=== PATIENT | male | born 1970 | race Caucasian/White ===

== ENCOUNTER 2019-01-09 23:23 | Inpatient (IN) | payer SELFPAY ==
[2019-01-10 00:18] VITALS: BMI 26.9
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
[2019-01-10] MEDS ORDERED: ACETAMINOPHEN 325 MG TABLET (FP) PO PRN ×2 (01:16)
[2019-01-10] MEDS ORDERED: P-EPHED 60MG/TRIPROLIDI 2.5MG TABLET PO PRN (01:16)
[2019-01-10] MEDS ORDERED: MELATONIN 5 MG TABLETS PO PRN (01:16)
[2019-01-10] MEDS ORDERED: DICYCLOMINE HCL 10 MG CAPSULE PO PRN (01:16)
[2019-01-10] MEDS ORDERED: IBUPROFEN 400 MG TABLET (FP) PO PRN ×2 (01:16)
[2019-01-10] MEDS ORDERED: MAGNESIUM CITRATE 300 ML BOTTLE PO PRN (01:16)
[2019-01-10] MEDS ORDERED: MENTHOL/PHENOL 1 EACH UD MM PRN (01:16)
[2019-01-10] MEDS ORDERED: ONDANSETRON *ODT* 4 MG TABLET SL PRN (01:16)
[2019-01-10] MEDS ORDERED: hydrOXYzine PAMOATE 25 MG CAPSULE (FP) PO PRN (01:16)
[2019-01-10] MEDS ORDERED: METHOCARBAMOL 500 MG TABLET PO PRN (01:16)
[2019-01-10] MEDS ORDERED: chlordiazePOXIDE HCL 25 MG CAPSULE PO ONE (01:16)
[2019-01-10] MEDS ORDERED: MAGNESIUM HYDROX 2400MG/30ML ORAL SUSPENSION 30 ML CUP PO PRN (01:16)
[2019-01-10] MEDS ORDERED: MAG HYDROX/AL HYDROX/SIMETH 30 ML UNIT-DOSE CUP PO PRN (01:16)
[2019-01-10] MEDS ORDERED: BACLOFEN 10 MG TABLET (FP) PO PRN (01:16)
[2019-01-10] MEDS ORDERED: guaiFENesin 200 MG/10 ML 10 ML UNIT-DOSE CUPS PO PRN (01:16)
[2019-01-10] MEDS ORDERED: chlordiazePOXIDE HCL 25 MG CAPSULE PO PRN (01:16)
[2019-01-10] MEDS ORDERED: NICOTINE POLACRILEX 4 MG GUM BUC PRN (01:16)
[2019-01-10] MEDS ORDERED: BISMUTH SUBSALICYLATE 524 MG/30 ML UD PO PRN (01:16)
[2019-01-10] MEDS ORDERED: cloNIDine HCL 0.1 MG TABLET PO PRN (01:19)
[2019-01-10] MEDS ORDERED: chlordiazePOXIDE HCL 25 MG CAPSULE PO SCH (05:00)
[2019-01-10] MEDS ORDERED: ALBUTEROL SO4 8 GM HFA INHALER IH PRN (07:22)
[2019-01-10 09:22] VITALS: BP 151/104; PULSE 95; TEMP 97.9
[2019-01-10] MEDS ORDERED: PRENATAL VITAMINS W/ FOLIC ACID TABLET (FP) PO SCH (10:00)
[2019-01-10] MEDS ORDERED: NICOTINE 21 MG/24 HOURS TOPICAL PATCH TD SCH (10:00)
[2019-01-10 10:56] LABS: ALBUMIN 3.3 g/dl (3.4-5.0); BILIRUBIN,TOTAL 0.4 mg/dL (0.2-1); CALCIUM 8.7 mg/dL (8.5-10.1); CREATININE 0.8 mg/dL (0.55-1.3); POTASSIUM 3.3 mmol/L (3.5-5.1); TOT PROT 6.2 g/dl (6.4-8.2)
[2019-01-10 11:18] LABS: HEMATOCRIT 41.9 % (35.4-49); HEMOGLOBIN 14.4 GM/dL (11.7-16.9); MCH 33.8 pg (25.7-33.7); MCHC 34.4 g/dl (32.0-35.9); MEAN CELL VOLUME 98.1 fl (80-96); MEAN PLT VOLUME 7.9 fl (7.5-11.1); PLATELET COUNT 134 K/MM3 (134-434); RBC 4.27 M/mm3 (4.00-5.60); RDW 13.1 % (11.9-15.9); WHITE BLOOD COUNT 4.4 K/mm3 (4.0-10.0)
--- NOTE | 2019-01-10 18:07 | DS ---
[facility] Detox Discharge Summary Admission Date: 01/10/19 Discharge Date: 01/10/19 - History Present History: Alcohol Dependence Additional Comments: PATIENT REPORTS URGENT PERSONAL ISSUE THAT HE MUST ATTEND TO TO IMMEDIATELY AND THAT HE DOES NOT WISH TO REMAIN TO COMPLETE DETOX REGIMEN. RISKS OF LEAVING DETOX UNIT AGAINST MEDICAL ADVICE AND PRIOR TO COMPLETION OF DETOX REGIMEN EXPLAINED TO PATIENT. PATIENT ADVISED TO GO IMMEDIATELY TO NEAREST ER SHOULD ANY INTOLERABLE WITHDRAWAL / DETOX SYMPTOMS DEVELOP AT ANY TIME. PATIENT VERBALIZED UNDERSTANDING OF ALL INFORMATION / RECOMMENDATIONS PRESENTED TO HIM PRIOR TO DEPARTURE FROM DETOX UNIT. Pertinent Past History: HTN, Asthma, Depression. - Physical Exam Results Vital Signs: Vital Signs Temperature 97.9 F 01/10/19 09:21 Pulse Rate 95 H 01/10/19 09:21 Respiratory Rate 16 01/10/19 09:21 Blood Pressure 151/104 H 01/10/19 09:21 O2 Sat by Pulse Oximetry (%) Pertinent Admission Physical Exam Findings: WITHDRAWAL SYMPTOMS. Laboratory Tests 01/10/19 01/10/19 01/10/19 07:40 07:40 07:40 WBC 4.4 RBC 4.27 Hgb 14.4 Hct 41.9 MCV 98.1 H MCH 33.8 H MCHC 34.4 RDW 13.1 Plt Count 134 MPV 7.9 Sodium 137 Potassium 3.3 L Chloride 101 Carbon Dioxide 30 Anion Gap 7 L BUN 9.0 Creatinine 0.8 Est GFR (CKD-EPI)AfAm 124.16 Est GFR (CKD-EPI)NonAf 107.13 Random Glucose 97 Calcium 8.7 Total Bilirubin 0.4 AST 109 H ALT 148 H Alkaline Phosphatase 76 Total Protein 6.2 L Albumin 3.3 L RPR Titer Nonreactive LABS NOTED. - Medication Discharge Medications: Ambulatory Orders NK [No Known Home Medication] 01/10/19 - Diagnosis (1) Alcohol dependence with withdrawal, uncomplicated Status: Acute (2) At risk for dehydration due to poor fluid intake Status: Acute (3) Depressed affect Status: Acute (4) Skin turgor poor Status: Acute (5) Substance induced mood disorder Status: Acute (6) Asthma Status: Chronic Qualifiers: Asthma severity: mild Asthma persistence: intermittent Asthma complication type: uncomplicated Qualified Code(s): J45.20 - Mild intermittent asthma, uncomplicated (7) HTN (hypertension) Status: Chronic Qualifiers: Hypertension type: essential hypertension Qualified Code(s): I10 - Essential (primary) hypertension - AMA Did Patient Leave Against Medical Advice: Yes
[2019-01-10] MEDS ORDERED: THIAMINE HCL 100 MG TABLET (FP) PO SCH (22:00)
[2019-01-11] MEDS ORDERED: chlordiazePOXIDE HCL 25 MG CAPSULE PO SCH (05:00)
[2019-01-11] MEDS ORDERED: FLU VACCINE QUAD 60 MCG/0.5 ML (MDV 19-20) IM ONE (12:00)
[2019-01-11] MEDS ORDERED: PNEUMOC 13-VAL CONJ-DIP CRM/PF 0.5 ML DISP.SYRIN IM ONE (12:00)
[2019-01-12] MEDS ORDERED: chlordiazePOXIDE HCL 10 MG CAPSULE PO PRN
[2019-01-12] MEDS ORDERED: chlordiazePOXIDE HCL 10 MG CAPSULE PO SCH (05:00)
[2019-01-13] MEDS ORDERED: chlordiazePOXIDE HCL 10 MG CAPSULE PO SCH (05:00)
[2019-01-14] MEDS ORDERED: chlordiazePOXIDE HCL 10 MG CAPSULE PO ONE (05:00)
== END 2019-01-10 10:27 | disposition left against medical advice (07) | DRG 770 ==
LOC: YASAS 23:23 → Y6N 01-10 01:17
PROVIDERS: ADMIT Allergy & Immunology; ATTEND Allergy & Immunology
PROC: HZ2ZZZZ Detoxification Services for Substance Abuse Treatment (ICD-10-PCS; principal; 2019-01-10)
DX: F10.230 Alcohol dependence with withdrawal, uncomplicated (principal); F14.10 Cocaine abuse, uncomplicated; F19.24 Other psychoactive substance dependence with psychoactive substance-induced mood disorder; F32.9 Major depressive disorder, single episode, unspecified; I10 Essential (primary) hypertension; J45.20 Mild intermittent asthma, uncomplicated; R23.8 Other skin changes; R45.89 Other symptoms and signs involving emotional state; Z91.89 Other specified personal risk factors, not elsewhere classified
CPT/HCPCS: 36415; 80053; 85027; 86593; J0735

== ENCOUNTER 2019-01-25 23:48 | Inpatient (IN) | payer SELFPAY ==
[2019-01-26 00:16] VITALS: BMI 26.9
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
[2019-01-26] MEDS ORDERED: MAGNESIUM CITRATE 300 ML BOTTLE PO PRN (00:55)
[2019-01-26] MEDS ORDERED: ACETAMINOPHEN 325 MG TABLET (FP) PO PRN ×2 (00:55)
[2019-01-26] MEDS ORDERED: diazePAM 5 MG TABLET PO ONE (00:55)
[2019-01-26] MEDS ORDERED: NICOTINE POLACRILEX 4 MG GUM BUC PRN (00:55)
[2019-01-26] MEDS ORDERED: MELATONIN 5 MG TABLETS PO PRN (00:55)
[2019-01-26] MEDS ORDERED: MENTHOL/PHENOL 1 EACH UD MM PRN (00:55)
[2019-01-26] MEDS ORDERED: BISMUTH SUBSALICYLATE 524 MG/30 ML UD PO PRN (00:55)
[2019-01-26] MEDS ORDERED: MAG HYDROX/AL HYDROX/SIMETH 30 ML UNIT-DOSE CUP PO PRN (00:55)
[2019-01-26] MEDS ORDERED: IBUPROFEN 400 MG TABLET (FP) PO PRN (00:55)
[2019-01-26] MEDS ORDERED: MAGNESIUM HYDROX 2400MG/30ML ORAL SUSPENSION 30 ML CUP PO PRN (00:55)
[2019-01-26] MEDS: ALBUTEROL SO4 2.5/IPRATROPIUM 0.5 INH SOL 3 ML VIAL.NEB. NEB SCH ×6 (01:57→20:19)
[2019-01-26] MEDS: hydrOXYzine PAMOATE 25 MG CAPSULE (FP) PO PRN (02:19)
[2019-01-26] MEDS: METHOCARBAMOL 500 MG TABLET PO PRN (02:19)
[2019-01-26] MEDS: diazePAM 5 MG TABLET PO SCH ×3 (05:58→22:20)
[2019-01-26] MEDS: diazePAM 5 MG TABLET PO PRN ×2 (09:43→17:11)
[2019-01-26] MEDS: PRENATAL VITAMINS W/ FOLIC ACID TABLET (FP) PO SCH (09:43)
[2019-01-26] MEDS: NICOTINE 21 MG/24 HOURS TOPICAL PATCH TD SCH (09:43)
--- NOTE | 2019-01-26 12:45 | PN ---
S CIWA - CIWA Score Nausea/Vomitin Muscle Tremors: 2 Anxiety: 3 Agitation: 3 Paroxysmal Sweats: 1-Minimal Palms Moist Orientation: 0-Oriented Tacttile Disturbances: 1-Very Mild Itch/Numbness Auditory Disturbances: 0-None Visual Disturbances: 0-None Headache: 1-Very Mild CIWA-Ar Total Score: 13 BHS Progress Note (SOAP) Subjective: alert,irritable,anxious,interrupted sleep,tremor Objective: 01/26/19 12:43 Vital Signs Temperature 98.0 F 01/26/19 11:37 Pulse Rate 102 H 01/26/19 11:37 Respiratory Rate 20 01/26/19 11:37 Blood Pressure 186/95 H 01/26/19 11:37 O2 Sat by Pulse Oximetry (%) Assessment: 01/26/19 12:44 withdrawal symptom Plan: continue detox valium regimen
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
[2019-01-26] MEDS: ALBUTEROL SO4 8 GM HFA INHALER IH PRN (20:19)
[2019-01-26] MEDS: THIAMINE HCL 100 MG TABLET (FP) PO SCH (22:20)
[2019-01-26] MEDS: SUVOREXANT 10 MG TABLET PO PRN (22:21)
[2019-01-27] MEDS: diazePAM 5 MG TABLET PO SCH ×2 (05:57→17:29)
[2019-01-27] MEDS: hydrOXYzine PAMOATE 25 MG CAPSULE (FP) PO PRN ×2 (08:24→17:30)
[2019-01-27] MEDS: diazePAM 5 MG TABLET PO PRN ×3 (08:24→18:15)
[2019-01-27] MEDS: PRENATAL VITAMINS W/ FOLIC ACID TABLET (FP) PO SCH (10:08)
[2019-01-27] MEDS: NICOTINE 21 MG/24 HOURS TOPICAL PATCH TD SCH (10:09)
--- NOTE | 2019-01-27 10:37 | PN ---
S CIWA - CIWA Score Nausea/Vomitin-Mild Nausea/No Vomiting Muscle Tremors: 1-None Visible, but Simpson Anxiety: 2 Agitation: 2 Paroxysmal Sweats: No Perspiration Orientation: 0-Oriented Tacttile Disturbances: 1-Very Mild Itch/Numbness Auditory Disturbances: 0-None Visual Disturbances: 0-None Headache: 1-Very Mild CIWA-Ar Total Score: 8 BHS Progress Note (SOAP) Subjective: alert,irritable,anxious,interrupted sleep Objective: 01/27/19 10:36 Vital Signs Temperature 97.9 F 01/27/19 09:20 Pulse Rate 88 01/27/19 09:20 Respiratory Rate 18 01/27/19 09:20 Blood Pressure 165/99 01/27/19 09:20 O2 Sat by Pulse Oximetry (%) labs pending Assessment: 01/27/19 10:36 withdrawal symptom Plan: continue detox valium regimen,discharge in am
[2019-01-27] MEDS: METHOCARBAMOL 500 MG TABLET PO PRN (10:39)
[2019-01-27 11:06] LABS: HEMATOCRIT 43.3 % (35.4-49); HEMOGLOBIN 14.5 GM/dL (11.7-16.9); MCH 32.9 pg (25.7-33.7); MCHC 33.5 g/dl (32.0-35.9); MEAN CELL VOLUME 98.4 fl (80-96); PLATELET COUNT 202 K/MM3 (134-434); WHITE BLOOD COUNT 4.7 K/mm3 (4.0-10.0)
[2019-01-27 11:32] LABS: ALBUMIN 3.2 g/dl (3.4-5.0); BLOOD UREA NITROGEN 8.8 mg/dL (7-18); CALCIUM 8.9 mg/dL (8.5-10.1); CREATININE 0.8 mg/dL (0.55-1.3); POTASSIUM 3.6 mmol/L (3.5-5.1); TOT PROT 6.3 g/dl (6.4-8.2)
[2019-01-27] MEDS: ALBUTEROL SO4 2.5/IPRATROPIUM 0.5 INH SOL 3 ML VIAL.NEB. NEB SCH ×3 (12:00→21:00)
[2019-01-27] MEDS: SUVOREXANT 10 MG TABLET PO PRN (21:34)
[2019-01-27] MEDS: THIAMINE HCL 100 MG TABLET (FP) PO SCH (21:34)
[2019-01-28] MEDS: ALBUTEROL SO4 2.5/IPRATROPIUM 0.5 INH SOL 3 ML VIAL.NEB. NEB SCH (04:36)
[2019-01-28] MEDS: ALBUTEROL SO4 8 GM HFA INHALER IH PRN (04:55)
[2019-01-28] MEDS ORDERED: diazePAM 5 MG TABLET PO ONE (06:00)
[2019-01-28 06:56] VITALS: BP 143/59; PULSE 64; TEMP 97
--- NOTE | 2019-01-28 09:26 | DS ---
[facility] Detox Discharge Summary Admission Date: 01/26/19 - History Present History: Alcohol Dependence, Cannabis Dependence, Cocaine Dependence - Physical Exam Results Vital Signs: Vital Signs Temperature 97 F L 01/28/19 06:56 Pulse Rate 64 01/28/19 06:56 Respiratory Rate 18 01/28/19 06:56 Blood Pressure 143/59 L 01/28/19 06:56 O2 Sat by Pulse Oximetry (%) Pertinent Admission Physical Exam Findings: Vital Signs Temperature 97 F L 01/28/19 06:56 Pulse Rate 64 01/28/19 06:56 Respiratory Rate 18 01/28/19 06:56 Blood Pressure 143/59 L 01/28/19 06:56 O2 Sat by Pulse Oximetry (%) Laboratory Tests 01/27/19 01/27/19 07:50 07:50 WBC 4.7 RBC 4.40 Hgb 14.5 Hct 43.3 MCV 98.4 H MCH 32.9 MCHC 33.5 RDW 13.0 Plt Count 202 D MPV 8.0 Sodium 143 Potassium 3.6 Chloride 104 Carbon Dioxide 32 Anion Gap 8 BUN 8.8 Creatinine 0.8 Est GFR (CKD-EPI)AfAm 124.16 Est GFR (CKD-EPI)NonAf 107.13 Random Glucose 118 H Calcium 8.9 Total Bilirubin 1.0 AST 43 H ALT 77 H Alkaline Phosphatase 75 Total Protein 6.3 L Albumin 3.2 L aaox3 ambulating no acute distress - Treatment Hospital Course: Detox Protocol Followed, Detoxed Safely, Responded well, Discharged Condition Good, Rehab Referral Accepted Patient has Accepted a Rehab Referral to: pt declined; referral provided - Medication Discharge Medications: Ambulatory Orders NK [No Known Home Medication] 01/10/19 - Diagnosis (1) Cannabis dependence Current Visit: Yes Status: Chronic (2) Cocaine dependence Current Visit: Yes Status: Chronic Qualifiers: Substance use status: uncomplicated Qualified Code(s): F14.20 - Cocaine dependence, uncomplicated (3) Substance induced mood disorder Current Visit: Yes Status: Acute (4) Substance-induced sleep disorder Current Visit: Yes Status: Acute (5) Nicotine dependence Current Visit: Yes Status: Chronic (6) PTSD (post-traumatic stress disorder) Current Visit: Yes Status: Chronic (7) Alcohol dependence with withdrawal, uncomplicated Current Visit: Yes Status: Chronic (8) Depressed affect Current Visit: No Status: Acute (9) Substance induced mood disorder Current Visit: No Status: Acute (10) Asthma Current Visit: Yes Status: Chronic Qualifiers: Asthma severity: mild Asthma persistence: intermittent Asthma complication type: uncomplicated Qualified Code(s): J45.20 - Mild intermittent asthma, uncomplicated (11) HTN (hypertension) Current Visit: No Status: Chronic Qualifiers: Hypertension type: essential hypertension Qualified Code(s): I10 - Essential (primary) hypertension - AMA Did Patient Leave Against Medical Advice: No
== END 2019-01-28 09:09 | disposition home or self-care (01) | DRG 774 ==
LOC: YASAS 23:48 → Y6N 01-26 00:52
PROVIDERS: ADMIT Allergy & Immunology; ATTEND Allergy & Immunology
PROC: HZ2ZZZZ Detoxification Services for Substance Abuse Treatment (ICD-10-PCS; principal; 2019-01-26)
DX: F10.230 Alcohol dependence with withdrawal, uncomplicated (principal); F14.20 Cocaine dependence, uncomplicated; F12.220 Cannabis dependence with intoxication, uncomplicated; F17.210 Nicotine dependence, cigarettes, uncomplicated; F19.282 Other psychoactive substance dependence with psychoactive substance-induced sleep disorder; F19.24 Other psychoactive substance dependence with psychoactive substance-induced mood disorder; F43.10 Post-traumatic stress disorder, unspecified; I10 Essential (primary) hypertension; J45.20 Mild intermittent asthma, uncomplicated; R45.89 Other symptoms and signs involving emotional state; Z98.890 Other specified postprocedural states
CPT/HCPCS: 36415; 80053; 85027; 86593; 94640

== ENCOUNTER 2019-09-02 14:33 | Inpatient (IN) | payer OTHER ==
--- NOTE | 2019-09-02 15:00 | BHS.RME ---
Substance Use & Tx History - Substance Use History Alcohol Substance amount: one liter Frequency of use: Daily Substance route: Oral Date of Last Use: 09/02/19 - Last Treatment Date of last treatment: Jan 262018 Treatment type: Substance Use Disorder (ARIELLE) Where was last treatment: Detox Physical/Psych/Mental Status - Behavior General Behavior: Increased activity (restlessness, agitation) Eye Contact: Normal - Cooperativeness Cooperativeness: Cooperative - Thinking Thought Processes: Tight Thought content: Future oriented - Physical Health Problems Is patient presently having any pain?: Yes (low back pain for several weeks) Does patient presently have any injuries (include location): Yes (one week ago/uncertain of date, knee abrasion) CIWA Nausea/Vomitin-No Nausea/No Vomiting Muscle Tremors: 4-Moderate,w/Arms Extend Anxiety: 3 Agitation: 1-Slight > Activity Paroxysmal Sweats: No Perspiration Orientation: 1-Uncertain about Date Tacttile Disturbances: 0-None Auditory Disturbances: 0-None Visual Disturbances: 0-None Headache: 0-None Present CIWA-Ar Total Score: 9
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
[2019-09-02] MEDS ORDERED: MAG HYDROX/AL HYDROX/SIMETH 30 ML UNIT-DOSE CUP PO PRN (16:53)
[2019-09-02] MEDS ORDERED: METHOCARBAMOL 500 MG TABLET PO PRN (16:53)
[2019-09-02] MEDS ORDERED: MAGNESIUM CITRATE 300 ML BOTTLE PO PRN (16:53)
[2019-09-02] MEDS ORDERED: MENTHOL/PHENOL 1 EACH UD MM PRN (16:53)
[2019-09-02] MEDS ORDERED: ACETAMINOPHEN 325 MG TABLET (FP) PO PRN ×2 (16:53)
[2019-09-02] MEDS ORDERED: BISMUTH SUBSALICYLATE 524 MG/30 ML UD PO PRN (16:53)
[2019-09-02] MEDS ORDERED: IBUPROFEN 400 MG TABLET (FP) PO PRN (16:53)
[2019-09-02] MEDS ORDERED: MELATONIN 5 MG TABLETS PO PRN (16:53)
[2019-09-02] MEDS ORDERED: MAGNESIUM HYDROX 2400MG/30ML ORAL SUSPENSION 30 ML CUP PO PRN (16:53)
[2019-09-02 17:05] VITALS: BMI 26.2
[2019-09-02] MEDS: chlordiazePOXIDE HCL 25 MG CAPSULE PO SCH ×2 (17:27→22:04)
[2019-09-02] MEDS: hydrOXYzine PAMOATE 25 MG CAPSULE (FP) PO PRN ×2 (17:28→22:04)
[2019-09-02] MEDS ORDERED: METOPROLOL TARTRATE 50 MG TABLET (FP) PO ONE (18:27)
[2019-09-02] MEDS ORDERED: METOPROLOL TARTRATE 25 MG TABLET (FP) PO ONE (18:30)
[2019-09-02] MEDS: ALBUTEROL SO4 HFA INHALER IH PRN (19:10)
[2019-09-02] MEDS: THIAMINE HCL 100 MG TABLET (FP) PO SCH (22:04)
[2019-09-03] MEDS: chlordiazePOXIDE HCL 25 MG CAPSULE PO SCH ×4 (05:29→22:30)
[2019-09-03] MEDS: hydrOXYzine PAMOATE 25 MG CAPSULE (FP) PO PRN ×3 (06:48→16:45)
[2019-09-03] MEDS: chlordiazePOXIDE HCL 25 MG CAPSULE PO PRN ×2 (08:34→13:59)
[2019-09-03] MEDS: PRENATAL VITAMINS W/ FOLIC ACID TABLET (FP) PO SCH (10:48)
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
[2019-09-03 11:11] LABS: HEMATOCRIT 37.2 % (35.4-49); HEMOGLOBIN 12.3 GM/dL (11.7-16.9); MCH 32.8 pg (25.7-33.7); MCHC 33.2 g/dl (32.0-35.9); MEAN PLT VOLUME 7.6 fl (7.5-11.1); PLATELET COUNT 170 K/MM3 (134-434); RBC 3.76 M/mm3 (4.00-5.60); RDW 14.9 % (11.9-15.9); WHITE BLOOD COUNT 5.8 K/mm3 (4.0-10.0)
[2019-09-03 11:23] LABS: CALCIUM 8.4 mg/dL (8.5-10.1); POTASSIUM 3.3 mmol/L (3.5-5.1)
[2019-09-03 11:30] LABS: ALBUMIN 2.6 g/dl (3.4-5.0); BLOOD UREA NITROGEN 5.7 mg/dL (7-18); CREATININE 0.5 mg/dL (0.55-1.3); TOT PROT 5.9 g/dl (6.4-8.2)
--- NOTE | 2019-09-03 14:32 | PN ---
[facility] CIWA - CIWA Score Nausea/Vomitin-No Nausea/No Vomiting Muscle Tremors: 3 Anxiety: 4-Mod. Anxious/Guarded Agitation: 3 Paroxysmal Sweats: 1-Minimal Palms Moist Orientation: 0-Oriented Tacttile Disturbances: 0-None Auditory Disturbances: 0-None Visual Disturbances: 0-None Headache: 0-None Present CIWA-Ar Total Score: 11 BHS Progress Note (SOAP) Subjective: Pt is a 49 y/o male admitted to detox for alcohol withdrawal sx. c/o tremors anxiety intermittent sleep. Objective: 09/03/19 14:27 Vital Signs - 24 hr 09/02/19 09/02/19 09/02/19 17:01 17:20 17:30 Temperature 98.4 F 98.6 F Pulse Rate 133 H 132 H 144 H Respiratory 20 16 Rate Blood Pressure 146/91 140/89 141/83 O2 Sat by Pulse 97 Oximetry (%) 09/02/19 09/02/19 09/02/19 19:45 20:25 23:55 Temperature 98.4 F Pulse Rate 116 H 106 H 88 Respiratory 16 Rate Blood Pressure 142/94 150/81 131/85 O2 Sat by Pulse 96 Oximetry (%) 09/03/19 09/03/19 07:00 09:58 Temperature 98.8 F 97.5 F L Pulse Rate 84 73 Respiratory 18 16 Rate Blood Pressure 156/62 156/94 O2 Sat by Pulse 94 L 96 Oximetry (%) Laboratory Tests 09/03/19 09/03/19 09/03/19 07:50 07:50 07:50 WBC 5.8 RBC 3.76 L Hgb 12.3 Hct 37.2 MCV 99.0 H MCH 32.8 MCHC 33.2 RDW 14.9 D Plt Count 170 MPV 7.6 Sodium 139 Potassium 3.3 L Chloride 97 L Carbon Dioxide 35 H Anion Gap 6 L BUN 5.7 L Creatinine 0.5 L Est GFR (CKD-EPI)AfAm 149.57 Est GFR (CKD-EPI)NonAf 129.05 Random Glucose 95 Calcium 8.4 L Total Bilirubin 1.0 AST 45 H ALT 44 Alkaline Phosphatase 132 H Total Protein 5.9 L Albumin 2.6 L Syphilis Serology Non-reactive abnl lab results K+ = 3.3 alert o x 3 nad Rounded on pt while in bed, responded and communicated needs coherently. 07/16/20 14:30 Assessment: 09/03/19 14:29 withdrawal sx Plan: cont detox increase po fluids maintain safety
[2019-09-03] MEDS ORDERED: SUVOREXANT 10 MG TABLET PO PRN (22:00)
[2019-09-03] MEDS: THIAMINE HCL 100 MG TABLET (FP) PO SCH (22:30)
[2019-09-03] MEDS: ALBUTEROL SO4 HFA INHALER IH PRN (23:39)
[2019-09-04] MEDS: chlordiazePOXIDE HCL 25 MG CAPSULE PO SCH ×4 (06:18→23:01)
[2019-09-04] MEDS: PRENATAL VITAMINS W/ FOLIC ACID TABLET (FP) PO SCH (10:38)
[2019-09-04] MEDS: chlordiazePOXIDE HCL 25 MG CAPSULE PO PRN (13:43)
[2019-09-04] MEDS: hydrOXYzine PAMOATE 25 MG CAPSULE (FP) PO PRN ×2 (14:43→23:01)
--- NOTE | 2019-09-04 15:48 | PN ---
S CIWA - CIWA Score Nausea/Vomitin-No Nausea/No Vomiting Muscle Tremors: 3 Anxiety: 4-Mod. Anxious/Guarded Paroxysmal Sweats: 2 Orientation: 0-Oriented Tacttile Disturbances: 0-None Auditory Disturbances: 0-None Visual Disturbances: 0-None Headache: 0-None Present BHS Progress Note (SOAP) Subjective: Pt c/o sweats irritability anxiety fatigue Objective: 09/04/19 15:45 Vital Signs - 24 hr 09/03/19 09/03/19 09/04/19 16:38 20:34 06:10 Temperature 98.0 F 98.0 F 98.0 F Pulse Rate 113 H 102 H 80 Respiratory 18 18 18 Rate Blood Pressure 151/111 H 161/99 143/80 O2 Sat by Pulse 93 L 93 L Oximetry (%) Laboratory Tests 09/03/19 09/03/19 09/03/19 07:50 07:50 07:50 WBC 5.8 RBC 3.76 L Hgb 12.3 Hct 37.2 MCV 99.0 H MCH 32.8 MCHC 33.2 RDW 14.9 D Plt Count 170 MPV 7.6 Sodium 139 Potassium 3.3 L Chloride 97 L Carbon Dioxide 35 H Anion Gap 6 L BUN 5.7 L Creatinine 0.5 L Est GFR (CKD-EPI)AfAm 149.57 Est GFR (CKD-EPI)NonAf 129.05 Random Glucose 95 Calcium 8.4 L Total Bilirubin 1.0 AST 45 H ALT 44 Alkaline Phosphatase 132 H Total Protein 5.9 L Albumin 2.6 L Syphilis Serology Non-reactive labs noted covid-19 result pending alert o x 3 nad laying in bed during rounds but responded coherently. Assessment: 09/04/19 15:45 withdrawal sx Plan: cont detox increase po fluids maintain safety
[2019-09-04] MEDS ORDERED: cloNIDine HCL 0.1 MG TABLET PO ONE (19:23)
[2019-09-04] MEDS: THIAMINE HCL 100 MG TABLET (FP) PO SCH (23:01)
[2019-09-04] MEDS: ALBUTEROL SO4 HFA INHALER IH PRN (23:39)
[2019-09-05] MEDS ORDERED: chlordiazePOXIDE HCL 10 MG CAPSULE PO PRN
[2019-09-05] MEDS ORDERED: chlordiazePOXIDE HCL 10 MG CAPSULE PO SCH (05:00)
[2019-09-05] MEDS: hydrOXYzine PAMOATE 25 MG CAPSULE (FP) PO PRN (06:29)
[2019-09-05 10:36] VITALS: BP 150/98; PULSE 97; TEMP 97.6
--- NOTE | 2019-09-05 11:31 | DS ---
[facility] Detox Discharge Summary Admission Date: 09/02/19 Discharge Date: 09/05/19 (Pt Left AMA) - History Present History: Alcohol Dependence Additional Comments: Pt left AMA. Pt did not complete the detox protocol. Pt states, "i got stuff to do". An attempt to let pt stay and complete the detox protocol failed. Pt is encouraged to follow-up with an outpatient CD program and also to follow-up with his pmd which he verbalized understanding. Pt is AOX3, in no acute respiratory distress, Full ROM and ambulatory. Pertinent Past History: h/o asthma and alcohol use disorder. - Physical Exam Results Vital Signs: Vital Signs Temperature 97.6 F 09/05/19 09:28 Pulse Rate 97 H 09/05/19 09:28 Respiratory Rate 18 09/05/19 09:28 Blood Pressure 150/98 09/05/19 09:28 O2 Sat by Pulse Oximetry (%) 97 09/05/19 09:28 Vital Signs 09/05/19 09/05/19 06:36 09:28 Temperature 98.0 F 97.6 F Pulse Rate 68 97 H Respiratory 18 18 Rate Blood Pressure 136/84 150/98 O2 Sat by Pulse 95 97 Oximetry (%) Laboratory Last Values WBC 5.8 K/mm3 (4.0-10.0) 09/03/19 07:50 RBC 3.76 M/mm3 (4.00-5.60) L 09/03/19 07:50 Hgb 12.3 GM/dL (11.7-16.9) 09/03/19 07:50 Hct 37.2 % (35.4-49) 09/03/19 07:50 MCV 99.0 fl (80-96) H 09/03/19 07:50 MCH 32.8 pg (25.7-33.7) 09/03/19 07:50 MCHC 33.2 g/dl (32.0-35.9) 09/03/19 07:50 RDW 14.9 % (11.9-15.9) D 09/03/19 07:50 Plt Count 170 K/MM3 (134-434) 09/03/19 07:50 MPV 7.6 fl (7.5-11.1) 09/03/19 07:50 Sodium 139 mmol/L (136-145) 09/03/19 07:50 Potassium 3.3 mmol/L (3.5-5.1) L 09/03/19 07:50 Chloride 97 mmol/L (98-107) L 09/03/19 07:50 Carbon Dioxide 35 mmol/L (21-32) H 09/03/19 07:50 Anion Gap 6 MMOL/L (8-16) L 09/03/19 07:50 BUN 5.7 mg/dL (7-18) L 09/03/19 07:50 Creatinine 0.5 mg/dL (0.55-1.3) L 09/03/19 07:50 Est GFR (CKD-EPI)AfAm 149.57 09/03/19 07:50 Est GFR (CKD-EPI)NonAf 129.05 09/03/19 07:50 Random Glucose 95 mg/dL (74-106) 09/03/19 07:50 Calcium 8.4 mg/dL (8.5-10.1) L 09/03/19 07:50 Total Bilirubin 1.0 mg/dL (0.2-1) 09/03/19 07:50 AST 45 U/L (15-37) H 09/03/19 07:50 ALT 44 U/L (13-61) 09/03/19 07:50 Alkaline Phosphatase 132 U/L (45-117) H 09/03/19 07:50 Total Protein 5.9 g/dl (6.4-8.2) L 09/03/19 07:50 Albumin 2.6 g/dl (3.4-5.0) L 09/03/19 07:50 Syphilis Serology Non-reactive (NONREACTIVE) 09/03/19 07:50 COVID-19 ([facility]) Not detected (Not Detected) 09/02/19 17:00 Labs noted. Pertinent Admission Physical Exam Findings: withdrawal symptoms. - Treatment Hospital Course: Detox Protocol Followed - Medication Discharge Medications: Ambulatory Orders NK [No Known Home Medication] 01/10/19 - Diagnosis (1) Alcohol dependence with withdrawal, uncomplicated Current Visit: Yes Status: Acute (2) Asthma Current Visit: No Status: Chronic Qualifiers: Asthma severity: mild Asthma persistence: intermittent Asthma complication type: uncomplicated Qualified Code(s): J45.20 - Mild intermittent asthma, uncomplicated (3) Alcohol use disorder Current Visit: Yes Status: Chronic - AMA Did Patient Leave Against Medical Advice: Yes
[2019-09-06] MEDS ORDERED: chlordiazePOXIDE HCL 10 MG CAPSULE PO SCH (05:00)
[2019-09-07] MEDS ORDERED: chlordiazePOXIDE HCL 10 MG CAPSULE PO ONE (05:00)
== END 2019-09-05 09:55 | disposition left against medical advice (07) | DRG 770 ==
LOC: YASAS 14:33 → Y5N DETOX 16:53
PROVIDERS: ADMIT Allergy & Immunology; ATTEND Allergy & Immunology
PROC: HZ2ZZZZ Detoxification Services for Substance Abuse Treatment (ICD-10-PCS; principal; 2019-09-02)
DX: F10.230 Alcohol dependence with withdrawal, uncomplicated (principal); F14.20 Cocaine dependence, uncomplicated; F12.20 Cannabis dependence, uncomplicated; F17.210 Nicotine dependence, cigarettes, uncomplicated; F19.280 Other psychoactive substance dependence with psychoactive substance-induced anxiety disorder; F19.282 Other psychoactive substance dependence with psychoactive substance-induced sleep disorder; F43.10 Post-traumatic stress disorder, unspecified; Z59.0 Homelessness; I10 Essential (primary) hypertension; J45.20 Mild intermittent asthma, uncomplicated; Z91.410 Personal history of adult physical and sexual abuse; Z56.0 Unemployment, unspecified
CPT/HCPCS: 36415; 80053; 85027; 86780; J0735; U0003

== ENCOUNTER 2019-09-13 06:26 | Emergency (ER) | payer OTHER ==
[2019-09-13 06:38] VITALS: BMI 27.1
--- NOTE | 2019-09-13 07:28 | PDOC ---
History of Present Illness - General Chief Complaint: Alcohol intoxication Stated Complaint: INTOX Time Seen by Provider: 09/13/19 07:08 History Source: Patient Exam Limitations: Intoxication - History of Present Illness Initial Comments: 09/13/19 07:32 49M PMH asthma, etoh dependence, polysubstance abuse presenting to ED requesting etoh detox. Pt states he drinks 1-2 L vodka every day for approximately 6 months. Pt concerned about he drinking; states he used crack overnight which was concerning to him. Denies other drug use. Last drink was right before ED arrival, states he had 8oz vodka. No recent trauma. Denies SI/HI. Denies f/c, cp/sob, n/v. NKDA. hx limited 2/2 intox Past History - Medical History Allergies/Adverse Reactions: Allergies Allergy/AdvReac Type Severity Reaction Status Date / Time No Known Allergies Allergy Verified 09/02/19 17:00 Home Medications: Ambulatory Orders Albuterol Sulfate Inhaler - [Ventolin HFA Inhaler -] 1 - 2 puff IH TID PRN 0 09/13/19 Amlodipine Besylate [Norvasc -] 5 mg PO DAILY #7 tablet 09/13/19 Anemia: No Asthma: Yes (NO MEDS) Cancer: No Cardiac Disorders: No CVA: No COPD: No CHF: No Dementia: No Diabetes: No GI Disorders: No Disorders: No HTN: Yes Hypercholesterolemia: No Kidney Stones: No Liver Disease: No Seizures: No Thyroid Disease: No - Surgical History Abdominal Surgery: No Appendectomy: No Cardiac Surgery: No Cholecystectomy: No Lung Surgery: No Neurologic Surgery: No Orthopedic Surgery: Yes (BACK, R LOWER EXTREM- PLATE INSERTION- 25YRS AGO.) - Reproductive History Testicular Surgery: No - Psycho-Social/Smoking History Smoking History: Current every day smoker Have you smoked in the past 12 months: Yes Number of Cigarettes Smoked Daily: 20 Cigars Per Day: 0 Information on smoking cessation initiated: No 'Breaking Loose' booklet given: 09/02/19 - Substance Abuse Hx (Audit-C & DAST Scrn) How often the patient has a drink containing alcohol: 4 0r more times/wk Number of drinks the patient has on a typical day: 10 or more How often the patient has six or more drinks on one occasion: Daily or almost daily Score: In Men: 4 or > Positive; In Women: 3 or > Positive: 12 Screen Result (Pos requires Nsg. Audit-10AR): Positive In the last yr the pt used illegal drug/Rx for NonMed reason: Yes Score: Yes response is considered Positive: 1 Screen Result (Positive result requires Nsg. DAST-10): Positive Review of Systems - Review of Systems Able to Perform ROS?: Yes (limited by intox ) Comments:: 09/13/19 20:37 CONSTITUTIONAL: Denies F / C HEENT: Denies headache, lightheadedness, dizziness, changes in vision / hearing, diplopia, blurry vision, sore throat, rhinorrhea RESP: Denies SOB CARD: Denies chest pain, palpitations GI: Denies N / V / D, abdominal pain, bloody stool, inability to tolerate PO : Denies dysuria NEURO: + etoh use. Denies numbness, tingling, weakness PSYCH: Denies SI/HI MSK: + chronic back pain SKIN: Denies rashes *Physical Exam - Vital Signs Last Vital Signs Temp Pulse Resp BP Pulse Ox 98.1 F 92 H 18 131/114 H 95 09/13/19 06:35 09/13/19 06:35 09/13/19 06:35 09/13/19 06:35 09/13/19 06:35 - Physical Exam 09/13/19 20:37 GEN: Intoxicated, NAD, AAOx3. HEENT: NC/AT, CN II-XII intact, EOMI, PERRL. No facial asymmetry. Moist mucous membranes, poor dentition. Normal voice. Supple neck w/ FROM. CV: S1/S2, RRR, no m/r/g LUNG: CTAB GI: Soft, ndnt, +BS, no guarding, no rebound. MSK: No obvious deformities of all extremities. SKIN: Warm, dry, no rashes appreciated. PSYCH: intoxicated. cooperative, speaking fluently and coherently. no SI/HI. NEURO: Moving all extremities well. 5/5 strength UE and LE b/l. symmetric sensat ion ED Treatment Course - LABORATORY CBC & Chemistry Diagram: 09/13/19 08:00 09/13/19 08:00 Medical Decision Making - Medical Decision Making 09/13/19 20:37 49M requesting etoh detox. will check basic labs, ekg, and cxr. dispo to [facility]. 09/13/19 08:46 labs reviewed replete K EKG 0831 HR 81 NSR, axis and interval wnl, no [place]/D, no TWIs CXR reviewed w/o obvious acute pathology; f/u official radiology read DC to [facility] Discharge - Discharge Information Problems reviewed: Yes Clinical Impression/Diagnosis: Alcohol intoxication Qualifiers: Complication of substance-induced condition: uncomplicated Qualified Code(s): F10.920 - Alcohol use, unspecified with intoxication, uncomplicated Condition: Stable Disposition: HOME - Additional Discharge Information Prescriptions: Amlodipine Besylate [Norvasc -] 5 mg PO DAILY #7 tablet - Follow up/Referral Referrals: Jakob Montanez MD [Staff Physician] - - Patient Discharge Instructions Patient Printed Discharge Instructions: DI for Alcohol Abuse Additional Instructions: You are being discharged from the Emergency Department and will proceed directly to [facility] for Alcohol Detox. You were found to be hypertensive in the ED, we gave you amlodipine 5mg. We sent a short supply to your pharmacy; please product picker and take as prescribed. Stop for adverse effects such as lightheadedness and dizziness. Follow up with Cardiology in the next 5-10 days. Follow up with Primary Care in the next 5-10 days. Return to the Emergency Department if you experience any new or worsening symptoms. - Post Discharge Activity
--- NOTE | 2019-09-13 07:29 | PDOC ---
Attending Attestation - Resident Resident Name: José Manuel Sullivan - ED Attending Attestation I have performed the following: I have examined & evaluated the patient, The case was reviewed & discussed with the resident, I agree w/resident's findings & plan, Exceptions are as noted - HPI HPI: 09/13/19 07:36 49YOM with h/o EtOH use disorder (states drinks 1-2 liters vodka daily), polysubstance use disorder, asthma, and chart h/o PTSD and ?psychiatric diagnoses who presents requesting EtOH detox. Drank about 8 oz vodka this morning before coming in. States that he also used crack cocaine yesterday and does not normally use it. Denies IVDA. He denies SI, HI, hallucinations, recent falls/injuries, or any recent f/c/n/v/d/c, LUBIN, lightheadedness, vertigo, n/t/w focally. - Physicial Exam PE: 09/13/19 08:12 GENERAL: odor of alcohol is present, appears intoxicated, slurred speech, a bit disheveled and unkempt, answers simple questions, tearful HEENT: PERRLA, EOMI, moist mucous membranes, no e/o facial trauma NECK/BACK: no spinal stepoff or deformity, no hematoma, neck supple CARDIOVASCULAR: regular rate/rhythm, normal S1S2, no MGR, capillary refill <2 seconds, extremities wwp, no edema LUNGS/RESPIRATORY: able to protect airway, nonlabored respirations, lungs CTAB GI/ABDOMEN: protuberant but nondistended, symmetric [id number], normoactive BS, soft, no midline pulsatile masses, no organomegaly : normal external appearance, no lesions, no swelling, non-malodorous MSK/EXTREMITIES: no muscle atrophy, no acute deformity, no edema DERM/SKIN: scattered superficial abrasions BLE anterior tibial areas, no outward e/o acute trauma, warm and dry, no pallor, no jaundice, no rash, no pathologic- appearing bruising, no skin breakdown, no lacerations, no e/o cutting, no track cali NEUROLOGICAL: CN II-XII grossly intact, no obvious facial droop, moving all four extremities, no tongue fasciculations, no asterixis, gait not tested at this time 2/2 risk of fall PSYCH: denies SI/HI, not responding to internal stimuli, no delusions during my interview and exam - Medical Decision Making 09/13/19 08:15 49YOM with h/o EtOH and polysubstance use d/o who presents asymptomatic but states intoxicated and requesting detox Initial Vital Signs Temp Pulse Resp BP Pulse Ox 98.1 F 92 H 18 131/114 H 95 09/13/19 06:35 09/13/19 06:35 09/13/19 06:35 09/13/19 06:35 09/13/19 06:35 DDX IBNLT: most likely EtOH intoxication, possible polysubstance intoxication, very unlikely withdrawal or hepatic encephalopathy or other more serious prachi ology. W/U ordered: Labs Tx ordered: amlodipine 5 mg for elevated BP Patient will be medically cleared and taken to [facility] with [facility] for detox. Laboratory Tests 09/13/19 09/13/19 08:00 08:00 WBC 4.6 RBC 3.80 L Hgb 12.9 Hct 38.5 MCV 101.3 H MCH 33.9 H MCHC 33.5 RDW 15.9 Plt Count 210 D MPV 7.2 L Absolute Neuts (auto) 2.5 Neutrophils % 55.0 Lymphocytes % 29.6 Monocytes % 11.9 H Eosinophils % 1.7 Basophils % 1.8 Nucleated RBC % 0 Sodium 145 Potassium 3.2 L Chloride 107 Carbon Dioxide 29 Anion Gap 10 BUN 7.8 Creatinine 0.8 Est GFR (CKD-EPI)AfAm 123.29 Est GFR (CKD-EPI)NonAf 106.38 Random Glucose 142 H Calcium 8.2 L Total Bilirubin 0.4 AST 53 H ALT 45 Alkaline Phosphatase 131 H Total Protein 6.5 Albumin 3.0 L 09/13/19 09:00 Patient with hypokalemia and this is repleted PO. Patient is medically cleared for detox, sent to [facility] with [facility] per resident note. Discharge - Discharge Information Problems reviewed: Yes Clinical Impression/Diagnosis: Alcohol intoxication Qualifiers: Complication of substance-induced condition: uncomplicated Qualified Code(s): F10.920 - Alcohol use, unspecified with intoxication, uncomplicated Condition: Stable Disposition: HOME - Admission No - Additional Discharge Information Prescriptions: Amlodipine Besylate [Norvasc -] 5 mg PO DAILY #7 tablet - Follow up/Referral Referrals: Jakob Montanez MD [Staff Physician] - - Patient Discharge Instructions Patient Printed Discharge Instructions: DI for Alcohol Abuse Additional Instructions: You are being discharged from the Emergency Department and will proceed directly to [facility] for Alcohol Detox. You were found to be hypertensive in the ED, we gave you amlodipine 5mg. We sent a short supply to your pharmacy; please bead picker and take as prescribed. Stop for adverse effects such as lightheadedness and dizziness. Follow up with Cardiology in the next 5-10 days. Follow up with Primary Care in the next 5-10 days. Return to the Emergency Department if you experience any new or worsening symptoms. - Post Discharge Activity
[2019-09-13] MEDS ORDERED: amLODIPine BESYLATE 5 MG TABLET (FP) PO ONE (08:07)
[2019-09-13] MEDS ORDERED: amLODIPine BESYLATE 2.5 MG TABLET (FP) ONE (08:11)
[2019-09-13 08:26] LABS: BASO % 1.8 % (0-2.0); EOS % 1.7 % (0-4.5); HEMATOCRIT 38.5 % (35.4-49); HEMOGLOBIN 12.9 GM/dL (11.7-16.9); LYMPH % 29.6 % (8-40); MCH 33.9 pg (25.7-33.7); MCHC 33.5 g/dl (32.0-35.9); MEAN CELL VOLUME 101.3 fl (80-96); MEAN PLT VOLUME 7.2 fl (7.5-11.1); MONO % 11.9 % (3.8-10.2); PLATELET COUNT 210 K/MM3 (134-434); RDW 15.9 % (11.9-15.9); WHITE BLOOD COUNT 4.6 K/mm3 (4.0-10.0)
[2019-09-13 08:40] LABS: BILIRUBIN,TOTAL 0.4 mg/dL (0.2-1); BLOOD UREA NITROGEN 7.8 mg/dL (7-18); CALCIUM 8.2 mg/dL (8.5-10.1); CREATININE 0.8 mg/dL (0.55-1.3); POTASSIUM 3.2 mmol/L (3.5-5.1); TOT PROT 6.5 g/dl (6.4-8.2)
[2019-09-13] MEDS ORDERED: POTASSIUM CHLORIDE ORAL LIQUID 20 MEQ/15 ML PO ONE (08:43)
[2019-09-13] MEDS ORDERED: POTASSIUM CHLORIDE ORAL LIQUID 20 MEQ/15 ML ONE (09:04)
[2019-09-13 09:19] VITALS: BP 151/101; PULSE 87; TEMP 98.3
--- NOTE | 2019-09-13 17:21 | EKG ---
Test Reason : Blood Pressure : / mmHG Vent. Rate : 081 BPM Atrial Rate : 081 BPM P-R Int : 152 ms QRS Dur : 098 ms QT Int : 400 ms P-R-T Axes : 050 062 051 degrees QTc Int : 464 ms POOR DATA QUALITY, INTERPRETATION MAY BE ADVERSELY AFFECTED NORMAL SINUS RHYTHM NORMAL ECG NO PREVIOUS ECGS AVAILABLE Confirmed by MD Rola, Kole ([id number]) on 09/13/2019 5:21:19 PM Referred By: Confirmed By:Kole Canela MD
== END 2019-09-13 09:15 | disposition home or self-care (01) ==
LOC: JER 06:26
DX: F10.920 Alcohol use, unspecified with intoxication, uncomplicated (principal)
CPT/HCPCS: 36415; 71045-TC-FY; 80053; 85025; 93005; 93010; 99285-25